=== PATIENT | female | born 1995 | race Caucasian/White ===

== ENCOUNTER 2016-10-01 06:00 | Inpatient (IN) | payer MEDICAID ==
[~2016-10-01] VITALS: Ht 167.6 cm; Wt 107.0 kg
--- NOTE | ~2016-10-01 | OR ---
[facility] 21 Y [address] ROOM: [place] [address] LOCATION: GOBS ADMIT DATE: 10/01/2016 OR/Procedure Report DISCHARGE DATE: FAMILY PHYSICIAN: KERI MILLER PA-C ATTENDING PHYSICIAN: ARAM MCKINNEY SURGEON: Aram Mckinney MD SERVICE LIAISON REPRESENTATIVE: Monika Jenkins MD. Her assistance was required for delivery of the fetus as well as adequate exposure during the case. DATE OF PROCEDURE: 10/01/2016 PREOPERATIVE DIAGNOSES: 1. Intrauterine at 39 weeks 0 day. 2. History of section x1. POSTOPERATIVE DIAGNOSES: 1. Intrauterine at 39 weeks 0 day. 2. History of section x1. 3. Low amniotic fluid. PROCEDURE PERFORMED: Repeat low transverse section. ANESTHESIA: Spinal plus TAP block. FINDINGS: Viable male with Apgars of 8 and 8 and weight of 3375 g. Placenta intact with 3-vessel cord. Normal uterus, normal fallopian tubes and ovaries bilaterally. COMPLICATIONS: None. ESTIMATED BLOOD LOSS: 400 mL. INDICATIONS: The patient is a 21-year-old female with a history of repeat section, who presented to Labor and Delivery at 39 weeks for scheduled repeat section. She is counseled on the risks of procedure to include, but not be limited to bleeding, infection, damage to surrounding organs and tissues including bowel, bladder, blood vessels, ureters, and nerves as well as need for additional procedures or hospitalizations due to any complications. DESCRIPTION OF PROCEDURE: The patient was taken to the OR where spinal anesthesia was placed. She was then placed in dorsal supine position. Saavedra catheter was placed. She was then prepped and draped in the usual sterile fashion. A time-out was performed and anesthesia was found to be adequate. A scalpel was then used to make a Pfannenstiel incision and carried down to the PATIENT'S NAME: WAGNER POSADAS [facility] AGE: 21 Y [address] ROOM: [place] [address] LOCATION: [facility] ADMIT DATE: 10/01/2016 OR/Procedure Report DISCHARGE DATE: FAMILY PHYSICIAN: KERI MILLER PA-C ATTENDING PHYSICIAN: ARAM MCKINNEY underlying fascia. The fascia was scored. The fascial incision was extended bilaterally with Lopez scissors. The fascia was then dissected off the rectus muscles superiorly and inferiorly with sharp and blunt dissection. The rectus muscles were divided in the midline. The peritoneum was identified and entered bluntly. The peritoneal incision was extended with blunt and sharp traction. A bladder blade was placed. A scalpel was then used to make a transverse incision in the lower uterine segment. This was extended in the cephalocaudal direction. The head was then grasped. Low amniotic fluid was noted. The head was delivered through the hysterotomy followed by the remainder of the fetus. The cord was clamped and cut. The infant was handed to the waiting delivery team. Cord blood was obtained. The placenta was then expressed intact. The uterus was exteriorized and cleared of remaining clot and debris. The hysterotomy was closed in a running locked fashion using 0 chromic suture. Hemostasis was noted. The uterus was replaced into the abdominal cavity. Hysterotomy was reexamined and again hemostasis was noted. The rectus muscles and fascia were inspected and hemostasis was noted. The fascia was then closed in a running fashion using 0 PDS suture. The subcutaneous tissue was irrigated and any areas of bleeding were cauterized. The skin was then closed with 4-0 Monocryl in a subcuticular fashion followed by Steri-Strips and a pressure dressing. Instrument, sponge, and needle counts were correct prior to abdominal closure at the conclusion of the case. DISPOSITION: Mom, stable. Baby to NICU for respiratory distress. MD CHANTALE ELIZABETH/tino /[id number] d: 10/01/161919 t: 10/18/16 0925, OPERATIVE SUMMARY
[~2016-10-01 06:00] MED LIST: PRENATAL 1+1)(P1 TAB PO
[2016-10-01] MEDS ORDERED: CARAFATE1 GM PO (10:58)
[2016-10-01 11:01] LABS: BASOPHIL % 0.3 %; EOSINOPHIL # 0.1 K/uL (0.0-0.5); EOSINOPHIL % 0.8 %; HEMATOCRIT 34.5 % (33.0-46.0); HEMOGLOBIN 11.8 g/dL (11.0-15.0); IMMATURE GRANULOCYTE % 0.2 %; LYMPHOCYTE # 2.7 K/uL (0.8-4.0); LYMPHOCYTE % 28.6 %; MCH 31.8 pg (27.0-34.0); MCHC 34.2 gm/dL (32.0-36.5); MONOCYTE # 0.5 K/uL (0.0-1.0); MONOCYTE % 5.3 %; MPV 9.8 fl (9.4-12.4); NEUTROPHIL % 64.8 %; NRBC % 0 /100WBC (0-0.00); PLATELET COUNT 301 K/uL (150-450); RBC 3.71 M/uL (3.50-5.00); RDW-CV 13.2 % (11.9-14.6); WBC 9.3 K/uL (4.0-11.0)
--- NOTE | 2016-10-01 11:41 | NUR ---
Met with patient at bedside today. Introduced myself and services offered by the CM department. Patient is scheduled for CSection this afternoon. She has all necessary items at home for baby girl. Informed her that she will need to contact Medicaid and inform them of baby's . Also discussed community resources in the [place] area, but she denies having any needs. She is already set up with the [facility]. She has chosen baby's doctor in [place]. Discussed signs and symptoms of post depression and left her material on the topic. She denies any needs or concerns at this time.
--- NOTE | 2016-10-02 04:53 | NUR ---
VSS, fundus firm 1 down, lochia small, emptying bladder without difficulty, percocet will be given at 0600, tordal last @ 0100, incision dry and intact, has been up in halls, works well with infant, nursing well.
[2016-10-02 05:21] LABS: BASOPHIL % 0.3 %; EOSINOPHIL # 0.1 K/uL (0.0-0.5); EOSINOPHIL % 1.1 %; HEMATOCRIT 31.1 % (33.0-46.0); HEMOGLOBIN 10.5 g/dL (11.0-15.0); IMMATURE GRANULOCYTE % 0.4 %; LYMPHOCYTE # 2.6 K/uL (0.8-4.0); LYMPHOCYTE % 25.5 %; MCH 31.6 pg (27.0-34.0); MCHC 33.8 gm/dL (32.0-36.5); MCV 93.7 fl (83.0-98.0); MONOCYTE # 0.9 K/uL (0.0-1.0); MONOCYTE % 8.8 %; MPV 9.6 fl (9.4-12.4); NEUTROPHIL # (ANC) 6.5 K/uL (1.8-7.8); NEUTROPHIL % 63.9 %; NRBC % 0 /100WBC (0-0.00); RBC 3.32 M/uL (3.50-5.00); RDW-CV 13.2 % (11.9-14.6); WBC 10.2 K/uL (4.0-11.0)
[2016-10-02 05:23] LABS: PLATELET COUNT 227 K/uL (150-450)
--- NOTE | 2016-10-02 17:30 | NUR ---
Last VS: T:98.9 P:67 R: 18 BP: 105/56 Pain ratin Last pain med: Motrin Medicated at: 1707 Effective: Yes R Lung sounds: , L Lung sounds: Fundus:, , Lochia: SMALL Breasts: SOFT Nipples: INTACT (has both nipple oint's) Incision appearance: APPROXIMATED (drsg removed @1700) Incision closure: SUTURE/STERISTRIP (horizontal) Bowel sounds: Passing flatus: N Voiding well: Y Significant event: *.UP AD MIGUEL, SHOWER/BED DONE @1645. LAST PERCOCET(2) GIVEN @ 1445, PAIN HAS REDUCED TO #5-6 COUPLE TIMES TODAY. REMINDED TO AMBULATE [place]A
[2016-10-03] MEDS ORDERED: SURFAK240 MG PO (10:56)
[2016-10-03] MEDS ORDERED: MOTRIN800 MG PO (10:57)
[2016-10-03] MEDS ORDERED: PERCOCET 5-3251 EACH PO ×2 (10:57→11:06)
[2016-10-03] MEDS ORDERED: REGLAN5 MG PO (11:02)
== END 2016-10-03 14:05 | disposition disaster alternative care site (69) | DRG 765 ==
LOC: GOBS 06:00
PROVIDERS: ADMIT Obstetrics & Gynecology
PROC: 10D00Z1 Extraction of Products of Conception, Low, Open Approach (ICD-10-PCS; principal; 2016-10-01)
DX: O34.211 Maternal care for low transverse scar from previous cesarean delivery (principal); O41.03X0 Oligohydramnios, third trimester, not applicable or unspecified; Z3A.39 39 weeks gestation of pregnancy; Z37.0 Single live birth
CPT/HCPCS: J0690; J1885; J2001; J2270; J2590; J7120